=== PATIENT | male | born 1985 | race Caucasian/White ===

== ENCOUNTER 2020-02-26 12:01 | Observation (INO) | payer OTHER ==
[~2020-02-26] VITALS: Ht 185.4 cm; Wt 78.7 kg
--- NOTE | 2020-02-26 13:00 | NUR ---
PT C/O NEEDLE THAT BROKE OFF IN HIS NECK WHEN HE WAS TRYING TO INJECT HEROIN. PT TO HAVE XRAY DONE. PT DENIES SOB, CP, HANNON, OR ANY OTHER COMPLAINT.
--- NOTE | 2020-02-26 14:35 | NUR ---
IV STARTED WITH US. PT TO HAVE CT WITH CONTRAST PER ENT.
[2020-02-26 14:48] LABS: ANION GAP 5 mmol/L (5-15); CALCIUM 8.6 mg/dL (8.5-10.1); CHLORIDE 106 mmol/L (98-107)
[2020-02-26 14:49] LABS: CREATININE 1.01 mg/dL (0.7-1.3)
--- NOTE | 2020-02-26 15:00 | NUR ---
PT RESTING IN NAD. LIGHTS WERE TURNED OFF. WAITING FOR CT.
[2020-02-26] MEDS ORDERED: OMNIPAQUE 350 MG/ML, 100ML BOTTLE ONE (15:29)
--- NOTE | 2020-02-26 16:03 | NUR ---
CHART UP FOR MD RECHECK. PT AWARE.
--- NOTE | 2020-02-26 16:29 | NUR ---
DR. NASH AT BEDSIDE. ENT TO BE PAGED AGAIN.
--- NOTE | 2020-02-26 16:51 | NUR ---
PT TO BE ADMITTED. MEAL TRAY ORDERED PER PT REQUEST.
[2020-02-26] MEDS ORDERED: ACETAMINOPHEN 325 MG TABLET PO PRN (17:00)
[2020-02-26] MEDS ORDERED: CEFAZOLIN PMX 1GM/50ML 50 ML IV ONE (17:00)
[2020-02-26] MEDS ORDERED: ONDANSETRON 2MG/ML, 2ML IVPush PRN (17:00)
[2020-02-26] MEDS ORDERED: hydrALAzine 20 MG/ML, 1ML IVPush PRN (17:00)
[2020-02-26] MEDS ORDERED: LORazepam 1MG TABLET PO PRN (17:00)
[2020-02-26] MEDS ORDERED: morphine SULFATE 10 MG/ML, 1ML IVPush PRN (17:00)
--- NOTE | 2020-02-26 17:14 | NUR ---
BREAK RN: PER ADMITTING MD, DR. FRANCO PT NEEDS TO BE NPO AT MIDNIGHT.
[2020-02-26 17:40] LABS: BASOPHILS # (AUTO) 0.03 x10^3/uL (0-0.1); BASOPHILS % (AUTO) 0 % (0-1); EOSINOPHILS # (AUTO) 0.09 x10^3/uL (0-0.4); EOSINOPHILS % (AUTO) 1 % (1-7); LYMPHOCYTES # (AUTO) 2.14 x10^3/uL (1-3.4); LYMPHOCYTES % (AUTO) 32 % (22-44); MD NO; MEAN CORPUSCULAR HEMOGLOBIN 29.1 pg (27.5-34.5); MEAN CORPUSCULAR HGB CONC 32.9 g/dL (33.2-36.2); MEAN CORPUSCULAR VOLUME 88.6 fL (81-97); MEAN PLATELET VOLUME 9.8 fL (7.4-10.4); MONOCYTES % (AUTO) 12 % (2-9); NEUTROPHILS # (AUTO) 3.69 x10^3/uL (1.8-6.8); NEUTROPHILS % (AUTO) 55 % (42-75); PLATELET COUNT 273 x10^3/uL (130-400); RED BLOOD COUNT 5.01 x10^6/uL (4.38-5.82); RED CELL DISTRIBUTION WIDTH 13.7 % (9.4-14.8)
--- NOTE | 2020-02-26 17:42 | NUR ---
BREAK RN: MEAL PROVIDED FOR PATIENT. PT VERBALIZED NO NEEDS AT THIS TIME.
[2020-02-26] MEDS ORDERED: CEFAZOLIN PMX 1GM/50ML 50 ML ONE (17:54)
--- NOTE | 2020-02-26 17:58 | NUR ---
ANTIBIOTICS STARTED AFTER BLOOD CULTURES X 2 WERE DRAWN.
[2020-02-26] MEDS: SODIUM CHLORIDE 0.9% 1,000 ML IV SCH (19:33)
[2020-02-26 19:40] VITALS: BP 131/71
[2020-02-26] MEDS: FAMOTIDINE 20 MG/2 ML IVPush SCH (20:16)
[2020-02-27 00:14] VITALS: BP 118/71
[2020-02-27] MEDS: FAMOTIDINE 20 MG/2 ML IVPush SCH (07:44)
[2020-02-27 08:38] LABS: ALANINE AMINOTRANSFERASE 20 U/L (12-78); ALBUMIN 3.7 g/dL (3.4-5.0); ANION GAP 4 mmol/L (5-15); CALCIUM 8.8 mg/dL (8.5-10.1); CHLORIDE 111 mmol/L (98-107); CREATININE 0.85 mg/dL (0.7-1.3)
[2020-02-27 08:40] LABS: ALKALINE PHOSPHATASE 64 U/L (45-117); BILIRUBIN,TOTAL 0.6 mg/dL (0.2-1.0); TOTAL PROTEIN 7.1 g/dL (6.4-8.2)
[2020-02-27] MEDS ORDERED: LIDOCAINE 1%-EPI 1:100K, 20ML ONE (08:43)
[2020-02-27] MEDS ORDERED: NEOSPORIN OINT, 15GM ONE (08:43)
[2020-02-27] MEDS: SODIUM CHLORIDE 0.9% 1,000 ML IV SCH ×2 (09:00→12:15)
[2020-02-27] MEDS ORDERED: MIDAZOLAM 1 MG/ML, 2ML ONE (09:56)
[2020-02-27] MEDS ORDERED: FENTANYL PF 100 MCG/2ML ONE (09:56)
[2020-02-27] MEDS ORDERED: SUGAMMADEX 200 MG/2 ML IVPush ONE (10:28)
[2020-02-27] MEDS ORDERED: PROPOFOL 10 MG/ML, 100ML IV ONE (10:28)
[2020-02-27] MEDS ORDERED: CEFAZOLIN PMX 1GM/50ML ONE (10:28)
[2020-02-27] MEDS ORDERED: ROCURONIUM 10 MG/ML,10ML ONE (10:28)
[2020-02-27] MEDS ORDERED: LIDOCAINE 1%-EPI 1:100K, 20ML IM ONE (10:57)
[2020-02-27] MEDS ORDERED: ONDANSETRON 2MG/ML, 2ML ONE (11:43)
[2020-02-27 12:12] VITALS: BP 130/77
[2020-02-27 12:29] VITALS: BP 147/82
[2020-02-27] MEDS ORDERED: AMOX1TAB61 PO (12:38)
[2020-02-27 12:59] VITALS: BP 122/75
[2020-02-27 13:25] VITALS: BP 123/70
== END 2020-02-27 14:59 | disposition left against medical advice (07) ==
LOC: ED 12:26 → EDIP 17:22 → 4NW 18:12
PROVIDERS: ADMIT Internal Medicine; ATTEND Internal Medicine
DX: Z03.818 Encounter for observation for suspected exposure to other biological agents ruled out (principal); S11.84XA Puncture wound with foreign body of other specified part of neck, initial encounter; F32.9 Major depressive disorder, single episode, unspecified; E46 Unspecified protein-calorie malnutrition; F11.10 Opioid abuse, uncomplicated; Z79.899 Other long term (current) drug therapy; W45.8XXA Other foreign body or object entering through skin, initial encounter; Y93.89 Activity, other specified; Y92.89 Other specified places as the place of occurrence of the external cause
CPT/HCPCS: 10121; 36415; 70360; 70491; 80048; 80053; 83735; 84100; 84443; 85025; 87040; 87635; 96361; 96365; 96366; 96375; 96376; 99285; G0378; J0690; J2250; J2270; J2405; J2704; J3010; J3490; J7030; Q9967

== ENCOUNTER 2020-04-30 21:35 | Emergency (ER) | payer MEDICAID ==
[~2020-04-30] VITALS: Ht 185.4 cm; Wt 76.2 kg
[~2020-04-30 21:35] MED LIST: AMOX1TAB61 PO
--- NOTE | 2020-04-30 21:53 | NUR ---
Dr. Arevalo at bedside for eval
[2020-04-30] MEDS ORDERED: ONDANSETRON 2MG/ML, 2ML IVPush ONE (22:00)
[2020-04-30] MEDS ORDERED: SODIUM CHLORIDE 0.9% 1,000ML IVBOLUS ONE (22:00)
[2020-04-30] MEDS ORDERED: KETOROLAC 30 MG/1 ML IVPush ONE (22:00)
[2020-04-30] MEDS ORDERED: ONDANSETRON 2MG/ML, 2ML ONE (22:07)
[2020-04-30] MEDS ORDERED: KETOROLAC 30 MG/1 ML ONE ×2 (22:07→22:43)
--- NOTE | 2020-04-30 22:15 | NUR ---
pt here for generalized abd. pain with N/V/D x1 day. pt reports that he is and IV heroin user ant that he is withdrawing as he has not used in a few days. pt reports that he was recently hosoitalized 4 days ago for unrelated sx. pt reports that he tried to go to [facility] and was told that he needed to go to the senior living. pt is A&O x4. no diaphoresis noted. no vomtiing at this time. no diarrhea
[2020-04-30 22:24] LABS: ALANINE AMINOTRANSFERASE 29 U/L (12-78); ALBUMIN 3.9 g/dL (3.4-5.0); ANION GAP 5 mmol/L (5-15); CALCIUM 9.6 mg/dL (8.5-10.1); CHLORIDE 109 mmol/L (98-107); CREATININE 0.97 mg/dL (0.7-1.3)
[2020-04-30 22:26] LABS: ALKALINE PHOSPHATASE 64 U/L (45-117); BILIRUBIN,TOTAL 0.3 mg/dL (0.2-1.0); TOTAL PROTEIN 7.8 g/dL (6.4-8.2)
[2020-04-30 22:27] LABS: BASOPHILS % (AUTO) 1 % (0-1); EOSINOPHILS % (AUTO) 0 % (1-7); LYMPHOCYTES % (AUTO) 15 % (22-44); MEAN CORPUSCULAR HEMOGLOBIN 29.3 pg (27.5-34.5); MEAN CORPUSCULAR HGB CONC 32.7 g/dL (33.2-36.2); MEAN PLATELET VOLUME 10.3 fL (7.4-10.4); MONOCYTES % (AUTO) 10 % (2-9); NEUTROPHILS % (AUTO) 75 % (42-75); PLATELET COUNT 287 x10^3/uL (130-400); RED BLOOD COUNT 5.17 x10^6/uL (4.38-5.82); RED CELL DISTRIBUTION WIDTH 14.6 % (9.4-14.8)
[2020-04-30 22:31] LABS: MD NO
[2020-04-30] MEDS ORDERED: ONDANSETRON ODT 4 MG ONE (22:43)
--- NOTE | 2020-04-30 22:45 | NUR ---
unsuccessful IV attempts. recheck with Dr. Arevalo and per toradol to be changed to IM and Zofran to PO. NS bolus to be cancelled
[2020-04-30] MEDS ORDERED: KETOROLAC 30 MG/1 ML IM ONE (23:00)
[2020-04-30] MEDS ORDERED: ONDANSETRON ODT 4 MG PO ONE (23:00)
--- NOTE | 2020-04-30 23:10 | NUR ---
pt has been given warm clothing and scarf from donation closet. reports that he is feeling better. no vomitin, no diarrhea
[2020-04-30 23:22] VITALS: BP 132/77
== END 2020-04-30 23:26 | disposition home or self-care (01) ==
LOC: ED 22:30
DX: F11.23 Opioid dependence with withdrawal (principal); Z72.9 Problem related to lifestyle, unspecified; Z87.891 Personal history of nicotine dependence
CPT/HCPCS: 36415; 80053; 85025; 96372; 99283; J1885; Q0162

== ENCOUNTER 2020-06-26 21:11 | Inpatient (IN) | payer MEDICAID ==
[~2020-06-26] VITALS: Ht 185.4 cm; Wt 78.1 kg
[2020-06-26] MEDS ORDERED: SODIUM CHLORIDE 0.9% 1,000ML IVBOLUS ONE (21:30)
[2020-06-26] MEDS ORDERED: SODIUM CHLORIDE FLUSH 10ML SYR IVF ONE (21:30)
--- NOTE | 2020-06-26 21:45 | NUR ---
SYNCOPAL EPISODE AT [facility] 1/2 HOUR AGO, PT THERE FOR HEROIN ABUSE, LAST DID HEROIN YESTERDAY
[2020-06-26] MEDS ORDERED: LEVETIRACETAM 1,000 MG in SODIUM CHLORIDE 0.9% 100 ML IV ONE (22:00)
[2020-06-26 22:19] LABS: BASOPHILS % (AUTO) 0 % (0-1); EOSINOPHILS % (AUTO) 0 % (1-7); LYMPHOCYTES % (AUTO) 11 % (22-44); MEAN CORPUSCULAR HEMOGLOBIN 30.5 pg (27.5-34.5); MEAN CORPUSCULAR HGB CONC 33.7 g/dL (33.2-36.2); MONOCYTES % (AUTO) 9 % (2-9); NEUTROPHILS % (AUTO) 80 % (42-75); PLATELET COUNT 260 x10^3/uL (130-400); RED BLOOD COUNT 4.89 x10^6/uL (4.38-5.82); RED CELL DISTRIBUTION WIDTH 13.9 % (9.4-14.8)
[2020-06-26 22:22] LABS: INTERNATIONAL NORMALIZED RATIO 1.05 (0.93-1.1); PROTHROMBIN TIME 11.1 Seconds (9.6-11.5)
[2020-06-26 22:24] LABS: ALBUMIN 3.6 g/dL (3.4-5.0); ANION GAP 6 mmol/L (5-15); CALCIUM 8.8 mg/dL (8.5-10.1); CHLORIDE 107 mmol/L (98-107); MD NO
--- NOTE | 2020-06-26 22:25 | NUR ---
AFTER MULTIPLE IV STICKS UNABLE TO START PIV, WILL GET ANOTHER RN TO DO ULTRA SOUND IV, PT TO BE ADMITTED AT THIS TIME
[2020-06-26 22:37] LABS: ALANINE AMINOTRANSFERASE 25 U/L (12-78); ALKALINE PHOSPHATASE 77 U/L (45-117); BILIRUBIN,TOTAL 0.6 mg/dL (0.2-1.0); CREATININE 0.91 mg/dL (0.7-1.3); T4 (THYROXINE) 6.4 mcg/dL (4.5-12.1); TROPONIN I < 0.015 ng/mL (0.000-0.045)
[2020-06-26] MEDS ORDERED: OXYcodone IR 5MG TABLET PO PRN (23:00)
[2020-06-26] MEDS ORDERED: DOCUSATE 100 MG CAPSULE PO PRN (23:00)
[2020-06-26] MEDS ORDERED: ACETAMINOPHEN 325 MG TABLET PO PRN (23:00)
[2020-06-26] MEDS ORDERED: hydrALAzine 20 MG/ML, 1ML IVPush PRN (23:00)
[2020-06-26] MEDS ORDERED: LABETALOL 5MG/ML, 20ML IVPush PRN (23:00)
[2020-06-26] MEDS ORDERED: PROMETHAZINE 25 MG/ML, 1ML IM PRN (23:00)
[2020-06-26] MEDS ORDERED: ONDANSETRON ODT 4 MG PO PRN (23:00)
[2020-06-26] MEDS ORDERED: POLYETHYLENE GLYCOL 17 GM PACKET PO PRN (23:00)
[2020-06-26] MEDS ORDERED: morphine SULFATE 10 MG/ML, 1ML IVPush PRN (23:00)
[2020-06-26] MEDS ORDERED: BISACODYL 10 MG SUPP PR PRN (23:00)
[2020-06-26] MEDS ORDERED: ONDANSETRON 2MG/ML, 2ML IVPush PRN (23:00)
[2020-06-26] MEDS ORDERED: POTASSIUM CHLORIDE 40 MEQ in SODIUM CHLORIDE 0.9% 500 ML IV ONE (23:30)
[2020-06-27 01:32] VITALS: BP 93/48
[2020-06-27] MEDS ORDERED: BACL20TA PO (01:43)
[2020-06-27] MEDS ORDERED: TRAZ-175 PO (01:43)
[2020-06-27] MEDS ORDERED: ARIP10TA33 PO (01:43)
[2020-06-27] MEDS ORDERED: GABA-827 PO (01:43)
[2020-06-27 03:47] VITALS: BP 94/59
[2020-06-27] MEDS ORDERED: POTASSIUM CHLORIDE 20 MEQ TAB.ER.PRT PO ONE (04:00)
[2020-06-27 06:21] LABS: BASOPHILS % (AUTO) 0 % (0-1); EOSINOPHILS % (AUTO) 1 % (1-7); LYMPHOCYTES % (AUTO) 22 % (22-44); MEAN CORPUSCULAR HEMOGLOBIN 30.6 pg (27.5-34.5); MEAN CORPUSCULAR HGB CONC 33.8 g/dL (33.2-36.2); MEAN PLATELET VOLUME 10.1 fL (7.4-10.4); MONOCYTES % (AUTO) 9 % (2-9); NEUTROPHILS % (AUTO) 68 % (42-75); PLATELET COUNT 215 x10^3/uL (130-400); RED BLOOD COUNT 4.51 x10^6/uL (4.38-5.82); RED CELL DISTRIBUTION WIDTH 14.1 % (9.4-14.8)
[2020-06-27 06:25] LABS: CHLORIDE 111 mmol/L (98-107)
[2020-06-27 06:40] LABS: ALANINE AMINOTRANSFERASE 19 U/L (12-78); ALBUMIN 3.1 g/dL (3.4-5.0); ALKALINE PHOSPHATASE 69 U/L (45-117); ANION GAP 3 mmol/L (5-15); BILIRUBIN,TOTAL 0.5 mg/dL (0.2-1.0); CALCIUM 8.3 mg/dL (8.5-10.1); CHOL/HDL RATIO 2.5; CHOLESTEROL, TOTAL 125 mg/dL (140-239); CREATININE 0.74 mg/dL (0.7-1.3); HDL CHOL % 40 % (26-37); HDL CHOLESTEROL (DIRECT) 50 mg/dL (40-60); LDL CHOLESTEROL,CALCULATED 60 mg/dL (54-169); LDL/HDL RATIO 1.2 (0.5-3.0); TOTAL PROTEIN 6.3 g/dL (6.4-8.2); TRIGLYCERIDES 76 mg/dL (50-200); VLDL CHOLESTEROL 15 mg/dL (0-25)
[2020-06-27 06:43] LABS: MICROSCOPIC NOT IND
[2020-06-27 06:50] LABS: MD NO
[2020-06-27 07:43] VITALS: BP 101/63
[2020-06-27] MEDS: LEVETIRACETAM 1,000 MG in SODIUM CHLORIDE 0.9% 100 ML IV SCH ×2 (11:04→23:01)
[2020-06-27 13:31] VITALS: BP 106/68
[2020-06-27 14:00] VITALS: BP 113/71
[2020-06-27 18:51] VITALS: BP 117/67
[2020-06-28] MEDS ORDERED: MELATONIN 5 MG TABLET ONE (01:52)
[2020-06-28] MEDS ORDERED: MELATONIN 5 MG TABLET PO PRN (02:00)
[2020-06-28 02:48] VITALS: BP 122/74
[2020-06-28 06:00] LABS: ANION GAP 6 mmol/L (5-15); CHLORIDE 110 mmol/L (98-107); CREATININE 0.85 mg/dL (0.7-1.3)
[2020-06-28 08:00] VITALS: BP 103/61
[2020-06-28 08:12] LABS: BASOPHILS % (AUTO) 1 % (0-1); EOSINOPHILS % (AUTO) 0 % (1-7); LYMPHOCYTES % (AUTO) 14 % (22-44); MEAN CORPUSCULAR HEMOGLOBIN 30.8 pg (27.5-34.5); MEAN CORPUSCULAR HGB CONC 33.9 g/dL (33.2-36.2); MEAN PLATELET VOLUME 9.8 fL (7.4-10.4); MONOCYTES % (AUTO) 8 % (2-9); NEUTROPHILS % (AUTO) 78 % (42-75); PLATELET COUNT 254 x10^3/uL (130-400); RED BLOOD COUNT 5.25 x10^6/uL (4.38-5.82); RED CELL DISTRIBUTION WIDTH 14.2 % (9.4-14.8)
[2020-06-28 08:50] LABS: MD NO
[2020-06-28] MEDS ORDERED: LEVE500T53 PO (10:14)
[2020-06-28] MEDS: LEVETIRACETAM 1,000 MG in SODIUM CHLORIDE 0.9% 100 ML IV SCH (11:34)
== END 2020-06-28 11:40 | disposition home or self-care (01) | DRG 87 ==
LOC: ED 22:03 → EDIP 22:08 → ED 22:15 → 5SO 06-27 00:33 → DCLOUNGE 06-28 11:35
PROVIDERS: ADMIT Internal Medicine; ATTEND Internal Medicine
DX: S06.6X0A Traumatic subarachnoid hemorrhage without loss of consciousness, initial encounter (principal); W18.39XA Other fall on same level, initial encounter; Y93.89 Activity, other specified; Y92.89 Other specified places as the place of occurrence of the external cause; Y99.8 Other external cause status; Z87.891 Personal history of nicotine dependence; F11.10 Opioid abuse, uncomplicated; E87.6 Hypokalemia
CPT/HCPCS: 36415; 70450; 80048; 80053; 80061; 81003; 83036; 83735; 84436; 84439; 84443; 84481; 84484; 85025; 85610; 85730; 93005; 93306; 93880; G0378; J1953; J3480; J7030; J7040

== ENCOUNTER 2020-11-13 14:29 | Emergency (ER) | payer MEDICAID ==
[~2020-11-13] VITALS: Ht 185.4 cm; Wt 99.9 kg
[~2020-11-13 14:29] MED LIST changes: +ARIP10TA33 PO; +BACL20TA PO; +GABA-827 PO; +LEVE500T53 PO; +TRAZ-175 PO
[2020-11-13 14:33] VITALS: BP 139/87
--- NOTE | 2020-11-13 14:42 | NUR ---
Pt arrived with complaints of L ankle pain x1 week. No deformity noted, ice provided, Xray at bedside. Pt denies injury to left ankle and states that "it just started to hurt when I walk on it". A&O x4, speaking in full sentences, able to bear weight on ankle when ambulating from triage to room, VSS< NADN
[2020-11-13] MEDS ORDERED: KETOROLAC 30 MG/1 ML ONE (14:48)
[2020-11-13] MEDS ORDERED: KETOROLAC 30 MG/1 ML IM ONE (15:00)
--- NOTE | 2020-11-13 15:54 | NUR ---
Faith at bedside to place splint
== END 2020-11-13 16:08 | disposition home or self-care (01) ==
LOC: ED 15:45
DX: M25.572 Pain in left ankle and joints of left foot (principal); D16.9 Benign neoplasm of bone and articular cartilage, unspecified
CPT/HCPCS: 73610; 96372; 99283; J1885

== ENCOUNTER 2020-12-02 21:37 | Emergency (ER) | payer MEDICAID ==
[~2020-12-02] VITALS: Ht 185.4 cm; Wt 95.6 kg
[2020-12-02 21:50] VITALS: BP 166/88
--- NOTE | 2020-12-02 23:19 | NUR ---
PT NOT IN LOBBY WHEN CALLED FOR ROOM.
--- NOTE | 2020-12-02 23:41 | NUR ---
PT NOT IN LOBBY WHEN CALLED FOR ROOM.
--- NOTE | 2020-12-02 23:50 | NUR ---
PT NOT IN LOBBY WHEN CALLED FOR ROOM. PT LWBS.
== END 2020-12-02 23:53 | disposition left against medical advice (07) ==
LOC: ED 22:13
DX: R10.84 Generalized abdominal pain (principal); Z53.21 Procedure and treatment not carried out due to patient leaving prior to being seen by health care provider